=== PATIENT | male | born 1970 | race Caucasian/White ===

== ENCOUNTER 2017-03-12 05:14 | Emergency (ER) | payer OTHER ==
[~2017-03-12] VITALS: Ht 180.3 cm; Wt 90.1 kg
[2017-03-12 05:17] VITALS: BP 123/71; PULSE 83; RESP 16; O2SAT 99
[2017-03-12] MEDS ORDERED: Ondansetron 2 mg/mL 2 mL Inj ONE (05:24)
[2017-03-12 05:36] LABS: BASOPHILS % (AUTO) 0.6 % (0-3); EOSINOPHILS % (AUTO) 3.3 % (0-5); MONOCYTES % (AUTO) 12.5 % (4-12); Mean Corpuscular Volume 89.4 fL (81-100); NEUTROPHILS % (AUTO) 51.1 % (40-74); Platelet Count 346 bil/L (150-400)
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
[2017-03-12 06:07] LABS: Magnesium 2.1 mg/dL (1.6-2.6)
[2017-03-12] MEDS ORDERED: OXYC-474 PO (06:41)
[2017-03-12] MEDS ORDERED: NPR500T PO (06:41)
[2017-03-12] MEDS: HYDROmorphone 1 mg/mL Inj IVPUSH PRN ×2 (07:01→07:02)
[2017-03-12] MEDS ORDERED: oxyCODONE-Acetamin 5-325 mg Tablet PO ONE (07:30)
[2017-03-12 07:36] VITALS: BP 100/45; PULSE 65; RESP 20
--- NOTE | 2017-03-12 09:43 | DRSVH ---
PROCEDURE: CT ABDOMEN AND PELVIS WITHOUT CONTRAST ([id number]) INDICATIONS: RLQ PAIN TECHNIQUE: Noncontrast 5 mm thick sections acquired from the diaphragms to the symphysis. 5 mm coronal and sagi ttal reformats were then performed. For radiation dose reduction, the following was used: automated exposure control, adjustment of mA and/or kV according to patient size. COMPARISON: None. FINDINGS: Preliminary report by line controller radiology Image quality: Excellent. ABDOMEN: Lung bases: Lung bases are clear. Heart size is normal. Solid organs: Liver and spleen are normal in size. Gallbladder appears normal. Pancreas is normal in contours. No adrenal nodules. Kidneys are normal in size. The right kidney contains a punctate c alcification in the anterior mid body. There is mild right hydronephrosis secondary to an obstructing 2 mm calculus at the UPJ. No left nephrolithiasis or hydronephrosis. Peritoneum and bowel: Unenhanced bowel loops demonstrate normal wall thickness and caliber. Normal appendix. No free fluid or air. Nodes and vessels: No retroperitoneal or mesenteric adenopathy by size criteria. Aorta and inferior vena cava are normal in caliber. Miscellaneous: No ventral hernias. PELVIS: Genitourinary: Bladder wall thickness is normal. Prostate is normal in size for age with dystrophic calcifications. Seminal vesicles are prominent bilaterally. Miscellaneous: No inguinal hernias or adenopathy. Bones: No suspicious bony lesions. Nonfused apophysis anterior, superior L5. Degenerative disc disea se L4-5 and L5-S1. No vertebral body compression fractures. IMPRESSION: 1. Right nephrolithiasis and mild hydronephrosis secondary to a small stone at the ureteropelvic junc tion, too small to characterize. 2. Normal appendix is visualized. Findings are concordant with the preliminary report Dictated by: Markos Damon M.D. on 03/12/2017 at 9:36 Approved by: Markos Damon M.D. on 03/12/2017 at 9:42
== END 2017-03-12 06:39 | disposition home or self-care (01) ==
LOC: SED 05:14
DX: N20.1 Calculus of ureter (principal); Z87.891 Personal history of nicotine dependence; Z87.442 Personal history of urinary calculi
CPT/HCPCS: 36415; 74176; 80053; 83690; 83735; 85025; 96374; 96375; 99285; J1170; J1885; J2405